=== PATIENT | male | born 1980 | race Caucasian/White ===

== ENCOUNTER 2019-02-06 21:35 | Emergency (ER) | payer BC ==
[2019-02-06] MEDS ORDERED: Pantoprazole 40 MG Vial IVPUSH ONE (21:45)
[2019-02-06] MEDS ORDERED: Aspirin 81 MG Tab.Chew PO ONE (21:45)
[2019-02-06] MEDS ORDERED: Sodium Chloride 0.9% 1,000 ML IV ONE (21:45)
--- NOTE | 2019-02-06 21:46 | EDM.PDOC ---
ED HPI GENERAL MEDICAL PROBLEM - General Chief Complaint: Chest Pain Stated Complaint: CHEST PAIN Time Seen by Provider: 02/06/19 21:46 Source of Information: Reports: Patient - History of Present Illness INITIAL COMMENTS - FREE TEXT/NARRATIVE: HISTORY AND PHYSICAL: History of present illness: [Patient presents with epigastric pain minimal 2 out of 10 nonradiating discomfort somewhat worsened by food nearly asymptomatic at current states pain has been present for 2 days it has been 10 out of 10, he comes in for medical screening today he is in no distress no fever nausea vomiting chills sweats or chest pain shortness breath headache dizziness or palpitation no bowel or urine symptoms Does have a history of diabetes which he chooses to treat with diet modification ] Review of systems: As per history of present illness and below otherwise all systems reviewed and negative. Past medical history: As per history of present illness and as reviewed below otherwise noncontributory. Surgical history: As per history of present illness and as reviewed below otherwise noncontributory. Social history: No reported history of drug or alcohol abuse. Family history: As per history of present illness and as reviewed below otherwise noncontributory. Physical exam: HEENT: Atraumatic, normocephalic, pupils reactive, negative for conjunctival pallor or scleral icterus, mucous membranes moist, throat clear, neck supple, nontender, trachea midline. Lungs: Clear to auscultation, breath sounds equal bilaterally, chest nontender. Heart: S1S2, regular, negative for clicks, rubs, or JVD. Abdomen: Soft, nondistended, nontender. Negative for masses or hepatosplenomegaly. Negative for costovertebral tenderness. Pelvis: Stable nontender. Genitourinary: Deferred. Rectal: Deferred. Extremities: Atraumatic, negative for cords or calf pain. Neurovascular unremarkable. Neuro: Awake, alert, oriented. Cranial nerves II through XII unremarkable. Cerebellum unremarkable. Motor and sensory unremarkable throughout. Exam nonfocal. Diagnostics: [CBC CMP troponin lipase UA EKG Chest 1 view ] Therapeutics: [ normal saline Aspirin Proton X GI cocktail resolved symptoms Insulin 10 units IV ] Impression: GERD Hyperglycemia Medication treatment noncompliance for diabetes Chronic history of baseline Definitive disposition and diagnosis as appropriate pending reevaluation and review of above. - Related Data Allergies Allergy/AdvReac Type Severity Reaction Status Date / Time No Known Allergies Allergy Verified 02/06/19 21:53 Home Meds: Home Meds . [No Known Home Meds] 02/06/19 [History] ED ROS GENERAL - Review of Systems Review Of Systems: See Below ED EXAM, GENERAL - Physical Exam Exam: See Below Course - Vital Signs Last Recorded V/S: Last Vital Signs Temp 97.2 F 02/06/19 21:35 Pulse 94 02/06/19 22:56 Resp 18 02/06/19 22:56 BP 152/98 H 02/06/19 22:56 Pulse Ox 96 02/06/19 22:56 - Orders/Labs/Meds Labs: Laboratory Tests 02/06/19 02/06/19 02/06/19 Range/Units 21:57 21:57 22:00 WBC 8.63 (4.0-11.0) K/uL RBC 5.79 (4.50-5.90) M/uL Hgb 18.4 H (13.0-17.0) g/dL Hct 49.9 (38.0-50.0) % MCV 86.2 (80.0-98.0) fL MCH 31.8 (27.0-32.0) pg MCHC 36.9 (31.0-37.0) g/dL RDW Std Deviation 40.2 (28.0-62.0) fl RDW Coeff of Yong 13 (11.0-15.0) % Plt Count 148 L (150-400) K/uL MPV 12.20 H (7.40-12.00) fL Neut % (Auto) 62.2 (48.0-80.0) % Lymph % (Auto) 28.2 (16.0-40.0) % [place] % (Auto) 7.1 (0.0-15.0) % Eos % (Auto) 2.3 (0.0-7.0) % Baso % (Auto) 0.2 (0.0-1.5) % Neut # (Auto) 5.4 (1.4-5.7) K/uL Lymph # (Auto) 2.4 (0.6-2.4) K/uL [place] # (Auto) 0.6 (0.0-0.8) K/uL Eos # (Auto) 0.2 (0.0-0.7) K/uL Baso # (Auto) 0.0 (0.0-0.1) K/uL Nucleated RBC % 0.0 /100WBC Nucleated RBCs # 0 K/uL Sodium 138 (136-148) mmol/L Potassium 3.6 (3.5-5.1) mmol/L Chloride 103 (98-107) mmol/L Carbon Dioxide 27.3 (21.0-32.0) mmol/L BUN 10 (7.0-18.0) mg/dL Creatinine 0.8 (0.8-1.3) mg/dL Est Cr Clr Drug Dosing 134.72 mL/min Estimated GFR (MDRD) > 60.0 ml/min Glucose 397 H (74-106) mg/dL Calcium 8.6 (8.5-10.1) mg/dL Total Bilirubin 0.7 (0.2-1.0) mg/dL ALT 48 (14-63) IU/L Alkaline Phosphatase 87 (46-116) U/L Troponin I < 0.050 (0.000-0.056) ng/mL Total Protein 7.2 (6.4-8.2) g/dL Albumin 3.7 (3.4-5.0) g/dL Globulin 3.5 (2.6-4.0) g/dL Albumin/Globulin Ratio 1.1 (0.9-1.6) Lipase 257 (73-393) U/L Urine Color YELLOW Urine Appearance CLEAR Urine pH 6.5 (5.0-8.0) Ur Specific [place] 1.020 (1.001-1.035) Urine Protein NEGATIVE (NEGATIVE) mg/dL Urine Glucose (UA) >=1000 (NEGATIVE) mg/dL Urine Ketones NEGATIVE (NEGATIVE) mg/dL Urine Occult Blood NEGATIVE (NEGATIVE) Urine Nitrite NEGATIVE (NEGATIVE) Urine Bilirubin NEGATIVE (NEGATIVE) Urine Urobilinogen 1.0 (<2.0) EU/dL Ur Leukocyte Esterase NEGATIVE (NEGATIVE) Meds: Medications Discontinued Medications Generic Name Dose Route Start Last Admin Trade Name Freq PRN Reason Stop Dose Admin Aspirin 324 mg 02/06/19 21:45 02/06/19 22:06 Aspirin PO 02/06/19 21:46 324 mg ONETIME ONE Administration Al Hydroxide/Mg Hydroxide 15 0 ml 02/06/19 22:41 02/06/19 22:55 ml/ Metoclopramide HCl 5 mg/ PO 02/06/19 22:42 25 each Lidocaine HCl 5 ml ONETIME ONE Administration Sodium Chloride 1,000 mls @ 999 mls/hr 02/06/19 21:45 02/06/19 22:05 Normal Saline IV 02/06/19 22:45 999 mls/hr STAT ONE Administration Insulin Human Regular 10 unit 02/06/19 23:03 02/06/19 23:15 Novolin R IVPUSH 02/06/19 23:04 10 units ONETIME ONE Administration Protocol Pantoprazole Sodium 80 mg 02/06/19 21:45 02/06/19 22:06 Protonix Iv IVPUSH 02/06/19 21:46 80 mg .BOLUS ONE Administration Sodium Chloride 20 ml 02/06/19 21:56 02/06/19 22:06 Normal Saline FLUSH 02/06/19 21:57 20 ml NOW STA Administration Departure - Departure Time of Disposition: 23:33 Disposition: Home, Self-Care 01 Condition: Good Clinical Impression: GERD (gastroesophageal reflux disease), Hyperglycemia - Discharge Information Referrals: PCP,None [Primary Care Provider] - Forms: ED Department Discharge Additional Instructions: Continue to follow glucose levels Follow-up with primary care to assist with management of diabetes Return if symptoms persist or worsen or if new concerning symptoms develop [facility] - Primary Care [address] [place] [id number] The following information is given to patients seen in the emergency department who are being discharged to home. This information is to outline your options for follow-up care. We provide all patients seen in our emergency department with a follow-up referral. The need for follow-up, as well as the timing and circumstances, are variable depending upon the specifics of your emergency department visit. If you don't have a primary care physician on staff, we will provide you with a referral. We always advise you to contact your personal physician following an emergency department visit to inform them of the circumstance of the visit and for follow-up with them and/or the need for any referrals to a consulting specialist. The emergency department will also refer you to a specialist when appropriate. This referral assures that you have the opportunity for follow-up care with a specialist. All of these measure are taken in an effort to provide you with optimal care, which includes your follow-up. Under all circumstances we always encourage you to contact your private physician who remains a resource for coordinating your care. When calling for follow-up care, please make the office aware that this follow-up is from your recent emergency room visit. If for any reason you are refused follow-up, please contact the [facility] emergency department at and asked to speak to the emergency department charge nurse.
[2019-02-06] MEDS ORDERED: Sodium Chloride 0.9% 20 ML SDV FLUSH STA (21:56)
[2019-02-06 22:24] LABS: CHLORIDE,CL 103 mmol/L (98-107); SODIUM,NA 138 mmol/L (136-148)
--- NOTE | 2019-02-06 22:34 | CR ---
INDICATION: Chest pain TECHNIQUE: Chest 1 view COMPARISON: None FINDINGS: Cardiovascular and mediastinum: Heart size and vasculature are normal in caliber and appearance. Lungs and pleural spaces: Lungs are clear. No sign of infiltrate or mass. No sign of pleural effusion. No pneumothorax. Bones and soft tissues: No significant findings. IMPRESSION: No acute or significant findings. Dictated by John Moncada MD @ Feb 06 2019 10:33PM Signed by Dr. John Moncada @ Feb 06 2019 10:34PM
[2019-02-06] MEDS ORDERED: Alum Hydrox/Mag Hydrox/Simeth 15 ML, Metoclopramide 5 MG, Lidocaine 2% 5 ML PO ONE ×3 (22:41)
[2019-02-06] MEDS ORDERED: Insulin Regular, Human 100 Units/ML 10 ML Vial IVPUSH ONE (23:03)
== END 2019-02-07 | disposition home or self-care (01) ==
LOC: MW.ED 21:35
DX: K21.9 Gastro-esophageal reflux disease without esophagitis (principal); E11.65 Type 2 diabetes mellitus with hyperglycemia; Z91.19 Patient's noncompliance with other medical treatment and regimen
CPT/HCPCS: 36415; 71045; 80053; 81003; 82962; 83690; 84484; 85025; 93005; 96361; 96374; 99285; A9270; C9113; J7040; 99284; J1815-GY

== ENCOUNTER 2019-08-18 14:13 | Emergency (ER) | payer BC, OTHER ==
[2019-08-18] MEDS ORDERED: Diphtheria,Pertussis(Acell),Tetanus Vaccine 0.5 ML Syringe IM ONE (15:37)
--- NOTE | 2019-08-18 15:37 | EDM.PDOC ---
ED HPI GENERAL MEDICAL PROBLEM - General Chief Complaint: Upper Extremity Injury/Pain Stated Complaint: FINGERS BROKEN Time Seen by Provider: 08/18/19 15:25 Source of Information: Reports: Patient History Limitations: Reports: No Limitations - History of Present Illness INITIAL COMMENTS - FREE TEXT/NARRATIVE: HISTORY AND PHYSICAL: History of present illness: Patient is a 39-year-old male who presents to the ED today with concern of finger injury that occurred just prior to arrival to the ED. 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 Patient states he has had pain with moving his middle finger since the incident. Patient denies any other symptoms or concerns. States he is not up to date on tetanus Patient denies fever, chills, chest pain, shortness of breath, or cough. Denies headache, neck stiff ness, change in vision, syncope, or near syncope. Denies nausea, vomiting, abdominal pain, diarrhea, constipation, or dysuria. Has not noted any blood in urine or stool. Patient has been eating and drinking appropriately. Review of systems: As per history of present illness and below otherwise all systems reviewed and negative. Past medical history: As per history of present illness and as reviewed below otherwise noncontributory. Surgical history: As per history of present illness and as reviewed below otherwise noncontributory. Social history: See social history for further information Family history: As per history of present illness and as reviewed below otherwise noncontributory. Physical exam: General: Patient is alert, oriented, and in no acute distress. Patient sitting comfortably on exam table. HEENT: Atraumatic, normocephalic, pupils equal and reactive bilaterally, negative for conjunctival pallor or scleral icterus, mucous membranes moist, TMs normal bilaterally, throat clear, neck supple, nontender, trachea midline. No drooling or trismus noted. No meningeal signs. No hot potato voice noted. Lungs: Clear to auscultation, breath sounds equal bilaterally, chest nontender. Heart: S1S2, regular rate and rhythm without overt murmur Abdomen: Soft, nondistended, nontender. Negative for masses or hepatosplenomegaly. Negative for costovertebral tenderness. Pelvis: Stable nontender. Genitourinary: Deferred. Rectal: Deferred. Skin: Intact, warm, dry. No lesions or rashes noted. Extremities: Negative for cords or calf pain. Neurovascular unremarkable. There are 2 superficial abrasions over the dorsum of the middle phalanx of digits 3 and 4 without bleeding. Patient has full range of motion of the left hand thumb , pointer finger, and pinky finger but has limited range of motion of the third and fourth digits. Radial pulses grossly intact of the left upper extremity with capillary refill less than 2 seconds. Neuro: Awake, alert, oriented. Cranial nerves II through XII unremarkable. Cerebellum unremarkable. Motor and sensory unremarkable throughout. Exam nonfocal. Notes: Discussed the importance for follow-up with an orthopedic provider. Patient was placed on the follow-up list with orthopedic. Voices understanding and is agreeable to plan of care. Denies any further questions or concerns at this time. Diagnostics: Hand XR Therapeutics: tdap, lidocaine, finger splints (placed by nursing staff) Prescription: None Impression: Plan: 1. Rest, ice, elevate the affected extremity. You can apply ice 15 minutes on, 15 minutes off. Keep the splints on until orthopedic evaluation and follow up. 2. Tylenol and/or Ibuprofen as directed for pain management or discomfort. 3. Follow up with the Orthopedic provider as discussed. Return to the ED as needed and as discussed. Definitive disposition and diagnosis as appropriate pending reevaluation and review of above. left middle and ring finger Pain Score (Numeric/FACES): 3 - Related Data Allergies Allergy/AdvReac Type Severity Reaction Status Date / Time No Known Allergies Allergy Verified 08/18/19 15:25 Home Meds: Home Meds . [No Known Home Meds] 08/18/19 [History] Past Medical History - Past Health History Medical/Surgical History: Denies Medical/Surgical History HEENT History: Reports: Impaired Vision Cardiovascular History: Reports: Hypertension Endocrine/Metabolic History: Reports: Diabetes, Type II - Past Surgical History HEENT Surgical History: Reports: Oral Surgery Social & Family History - Family History Family Medical History: Noncontributory - Tobacco Use Smoking Status *Q: Current Some Day Smoker Years of Tobacco use: 20 Packs/Tins Daily: 0 - Recreational Drug Use Recreational Drug Use: No Review of Systems - Review of Systems Review Of Systems: Comprehensive ROS is negative, except as noted in HPI. ED EXAM, GENERAL - Physical Exam Exam: See Below (see dictation) ED TRAUMA EXTREMITY PROCEDURES - Additional/Other Procedure(s) Other (Free Text) Procedure(s): 3rd digit left hand was sterilized using Betadine and then was digitally blocked using 5ml of 1% lidocaine and 5ml of 0.5% bupivacaine. The middle phalanx was relocated and digits were splinted by nursing staff. Patient tolerated procedure well. Course - Vital Signs Last Recorded V/S: Last Vital Signs Temp 96.7 F 08/18/19 15:23 Pulse 80 08/18/19 15:23 Resp 18 08/18/19 15:23 BP 138/83 08/18/19 15:23 Pulse Ox 97 08/18/19 15:23 - Orders/Labs/Meds Orders: Active Orders 24 hr Category Date Time Status Vaccines to be Administered [RC] PER UNIT ROUTINE Care 08/18/19 15:37 Active Hand Comp Min 3V Lt [CR] Stat Exams 08/18/19 16:25 Ordered Meds: Medications Discontinued Medications Generic Name Dose Route Start Last Admin Trade Name Mukundq PRN Reason Stop Dose Admin Bupivacaine HCl 10 ml 08/18/19 16:07 Sensorcaine-Mpf 0.25% INJECT 08/18/19 16:08 ONETIME ONE Bupivacaine HCl Confirm 08/18/19 16:07 08/18/19 16:15 Sensorcaine-Mpf 0.5% Administered 08/18/19 16:08 Not Given Dose 10 ml .ROUTE .STK-MED ONE Diphtheria/Tetanus/Acell Pertussis 0.5 ml 08/18/19 15:37 08/18/19 16:13 Adacel IM 08/18/19 15:38 0.5 ml .ONCE ONE Administration Lidocaine HCl 10 ml 08/18/19 16:02 Xylocaine-Mpf 1% INJECT 08/18/19 16:03 ONETIME ONE Departure - Departure Time of Disposition: 16:45 Disposition: Home, Self-Care 01 Clinical Impression: Middle or proximal phalanx or phalanges, closed fracture - Discharge Information Referrals: PCP,None [Primary Care Provider] - Forms: ED Department Discharge Additional Instructions: The following information is given to patients seen in the emergency department who are being discharged to home. This information is to outline your options for follow-up care. We provide all patients seen in our emergency department with a follow-up referral. The need for follow-up, as well as the timing and circumstances, are variable depending upon the specifics of your emergency department visit. If you don't have a primary care physician on staff, we will provide you with a referral. We always advise you to contact your personal physician following an emergency department visit to inform them of the circumstance of the visit and for follow-up with them and/or the need for any referrals to a consulting specialist. The emergency department will also refer you to a specialist when appropriate. This referral assures that you have the opportunity for follow-up care with a specialist. All of these measure are taken in an effort to provide you with optimal care, which includes your follow-up. Under all circumstances we always encourage you to contact your private physician who remains a resource for coordinating your care. When calling for follow-up care, please make the office aware that this follow-up is from your recent emergency room visit. If for any reason you are refused follow-up, please contact the [facility] Emergency Department at and asked to speak to the emergency department charge nurse. [facility] [address] [place] [address] [place] [address] [facility] Professional [facility] [address] [place] [address], [address] [place] [address] 1. Rest, ice, elevate the affected extremity. You can apply ice 15 minutes on, 15 minutes off. Keep the splints on until orthopedic evaluation and follow up. 2. Tylenol and/or Ibuprofen as directed for pain management or discomfort. 3. Follow up with the Orthopedic provider as discussed. Return to the ED as needed and as discussed. Sepsis Event Note - Evaluation Sepsis Screening Result: No Definite Risk - Focused Exam Vital Signs: Vital Signs Temp Pulse Resp BP Pulse Ox 08/18/19 15:23 96.7 F 80 18 138/83 97 Date Exam was Performed: 08/18/19 Time Exam was Performed: 16:45 - My Orders Last 24 Hours: My Active Orders 08/18/19 15:37 Vaccines to be Administered [RC] PER UNIT ROUTINE 08/18/19 16:25 Hand Comp Min 3V Lt [CR] Stat - Assessment/Plan Last 24 Hours: My Active Orders 08/18/19 15:37 Vaccines to be Administered [RC] PER UNIT ROUTINE 08/18/19 16:25 Hand Comp Min 3V Lt [CR] Stat
--- NOTE | 2019-08-18 16:02 | CR ---
INDICATION: Injury. Three views of the left hand. Findings: Transverse fractures through the 4th and 3rd middle phalanx with dorsal angulation and slight displacement. Soft tissue swelling present. Dictated by Kristin Foster MD @ Aug 18 2019 3:59PM Signed by Dr. Kristin Foster @ Aug 18 2019 4:00PM
[2019-08-18] MEDS ORDERED: Bupivacaine 0.5% 10 ML SDV ONE (16:07)
[2019-08-18] MEDS ORDERED: Bupivacaine 0.25% 10 ML SDV INJECT ONE (16:07)
--- NOTE | 2019-08-18 17:36 | CR ---
HISTORY: Left hand trauma. TECHNIQUE: Left hand 3 views. Addition lateral view post reduction. COMPARISON: Radiographs same day at 1539 hours. FINDINGS: Acute angulated fractures of the 3rd and 4th middle phalanges. Decreased angulation compared to prior radiographs on the initial 3 images. On the lateral post reduction image the alignment of the 3rd middle phalanx is anatomic. Minimal residual apex volar angulation of the 4th middle phalanx. No other change. IMPRESSION: Improved alignment of 3rd and 4th middle phalanx fractures. Dictated by Pillo Chavez MD @ Aug 18 2019 5:35PM Signed by Dr. Pillo Chavez @ Aug 18 2019 5:35PM
== END 2019-08-18 17:16 | disposition home or self-care (01) ==
LOC: MW.ED 14:13 → MERGE 14:13 → MW.ED 17:16
DX: S62.623A Displaced fracture of middle phalanx of left middle finger, initial encounter for closed fracture (principal); S62.625A Displaced fracture of middle phalanx of left ring finger, initial encounter for closed fracture; I10 Essential (primary) hypertension; E11.9 Type 2 diabetes mellitus without complications; F17.210 Nicotine dependence, cigarettes, uncomplicated; Z23 Encounter for immunization; W23.0XXA Caught, crushed, jammed, or pinched between moving objects, initial encounter; Y93.89 Activity, other specified; Y92.89 Other specified places as the place of occurrence of the external cause; Y99.0 Civilian activity done for income or pay
CPT/HCPCS: 26725; 73130; 90471; 90715; 99283; J2001; J3490

== ENCOUNTER 2019-12-17 22:49 | Emergency (ER) | payer OTHER ==
[2019-12-17] MEDS ORDERED: Sodium Chloride 0.9% 1,000 ML IV ONE (23:41)
[2019-12-18 00:25] LABS: BLOOD UREA NITROGEN,BUN 19 mg/dL (7.0-18.0); CARBON DIOXIDE,CO2 27.5 mmol/L (21.0-32.0); CHLORIDE,CL 96 mmol/L (98-107); GLUCOSE RANDOM 400 mg/dL (74-106); POTASSIUM,K 3.8 mmol/L (3.5-5.1); SODIUM,NA 131 mmol/L (136-148)
[2019-12-18 00:46] LABS: HEMOGLOBIN A1C 11.1 % (4.5-6.2)
[2019-12-18] MEDS ORDERED: Iopamidol 755 Mg/ML 100 ML Bottle IVPUSH STA (01:10)
[2019-12-18] MEDS ORDERED: metFORMIN 500 MG Tab PO ONE (01:15)
[2019-12-18] MEDS ORDERED: Insulin Regular, Human 100 Units/ML 10 ML Vial SUBCUT ONE (01:16)
--- NOTE | 2019-12-18 01:24 | CT ---
INDICATION: Pain TECHNIQUE: CT abdomen and pelvis acquired with IV contrast. COMPARISON: None FINDINGS: Lower chest: Unremarkable. Liver: Unremarkable. Spleen: Unremarkable. Pancreas: Unremarkable. Gallbladder and bile ducts: Unremarkable. Kidneys: Unremarkable. Adrenal glands: Unremarkable. GI tract: Sigmoid diverticulosis. Diffuse colonic fecal retention. Appendix is normal. Vascular structures: Unremarkable. Lymph nodes: Unremarkable. Miscellaneous: Unremarkable. No free air or significant free fluid. Pelvic Organs: Unremarkable. Bones: Unremarkable for age. IMPRESSION: Diffuse colonic fecal retention. Sigmoid diverticulosis. Dictated by Matt Portillo MD @ 12/18/2019 1:22:55 AM Please note that all CT scans at this facility use dose modulation, iterative reconstruction, and/or weight-based dosing when appropriate to reduce radiation dose to as low as reasonably achievable. Dictated by: Matt Portillo MD @ 12/18/2019 01:23:05 (Electronically Signed)
[2019-12-18] MEDS ORDERED: Dicyclomine 10 MG Cap PO ONE (01:51)
[2019-12-18] MEDS ORDERED: Dicyclomine 10 MG Cap ONE (01:53)
--- NOTE | 2019-12-18 02:00 | EDM.PDOC ---
ED HPI GENERAL MEDICAL PROBLEM - General Chief Complaint: Back Pain or Injury Stated Complaint: LEFT SIDE PAIN Time Seen by Provider: 12/17/19 23:31 Source of Information: Reports: Patient History Limitations: Reports: No Limitations - History of Present Illness INITIAL COMMENTS - FREE TEXT/NARRATIVE: This 39-year-old male is complaining of having right flank pain that is been ongoing for the last 3 days bothering him mainly at night. States pain is less when he is moving around during the day and is more noticeable when he rests at night. He describes the pain as 3-4 out of 10 intensity and feels somewhat crampy in nature. He denies any dysuria or hematuria. He is not nauseous and is not having any vomiting or diarrhea. Said no bloody or tarry looking stools. Patient has not taken anything for his current symptoms but states the pain is enough that it keeps him up at night. He has not seen his PCP for 2-1/ 2 years. Onset: Gradual Duration: Day(s): (three) Location: Reports: Abdomen, Back Quality: Reports: Ache Severity: Moderate Improves with: Reports: Movement Worsens with: Reports: Rest Associated Symptoms: Reports: No Other Symptoms R BACK PAIN Pain Score (Numeric/FACES): 2 - Related Data Allergies Allergy/AdvReac Type Severity Reaction Status Date / Time No Known Allergies Allergy Verified 02/06/19 21:53 Home Meds: Home Meds metFORMIN [Glucophage] 1 tab PO DAILY 12/17/19 [History] Dicyclomine [Bentyl] 20 mg PO TID PRN #20 tab 12/18/19 [Rx] metFORMIN [Glucophage] 500 mg PO BIDMEALS #60 tab 12/18/19 [Rx] Past Medical History - Past Health History Medical/Surgical History: Denies Medical/Surgical History HEENT History: Reports: Impaired Vision, Other (See Below) Other HEENT History: wears glasses Cardiovascular History: Reports: Hypertension Endocrine/Metabolic History: Reports: Diabetes, Type II - Infectious Disease History Infectious Disease History: Reports: Chicken Pox - Past Surgical History HEENT Surgical History: Reports: Oral Surgery Social & Family History - Family History Family Medical History: Noncontributory - Tobacco Use Smoking Status *Q: Current Some Day Smoker Years of Tobacco use: 15 Packs/Tins Daily: 0.1 - Recreational Drug Use Recreational Drug Use: No ED ROS GENERAL - Review of Systems Review Of Systems: Comprehensive ROS is negative, except as noted in HPI. ED EXAM,LOWER BACK PAIN/INJURY - Physical Exam Exam: See Below Exam Limited By: No Limitations General Appearance: Alert, No Apparent Distress Head: Atraumatic Neck: Normal Inspection, Supple Respiratory/Chest: No Respiratory Distress, Lungs Clear, Normal Breath Sounds Cardiovascular: Regular Rate, Rhythm, No JVD GI/Abdominal: Normal Bowel Sounds, Soft, No Distention, Tender. No: Guarding, Rigid, Rebound Back Exam: Normal Inspection, Full Range of Motion, CVA Tenderness (R) Extremities: Normal Inspection Neurological: Alert, Normal Mood/Affect Psychiatric: Normal Affect Skin Exam: Warm, Dry Course - Vital Signs Last Recorded V/S: Last Vital Signs Temp 36.7 C 12/17/19 23:11 Pulse 96 12/17/19 23:11 Resp 18 12/17/19 23:11 BP 174/105 H 12/17/19 23:11 Pulse Ox 96 12/17/19 23:11 Patient's urine shows greater than 1000 glucose and ketones. His blood sugar is 400 and his hemoglobin A1c is greater than 11. Patient CT scan shows a lot of stool in his colon. Otherwise is normal. I am starting patient on Bentyl and recommending he use mag citrate and MiraLAX [id number]. I will give him a prescription for additional Bentyl. I am also starting him on metformin 500 mg twice a day and recommend he follow-up with his PCP for recheck and adjustment of his meds. Patient will need to take his blood sugar frequently and have some diabetes teaching. Return to ER if vomiting or increased pain or feeling worse. - Orders/Labs/Meds Labs: Laboratory Tests 12/17/19 12/17/19 12/17/19 Range/Units 23:00 23:50 23:50 WBC 8.51 (4.0-11.0) K/uL RBC 5.41 (4.50-5.90) M/uL Hgb 17.0 (13.0-17.0) g/dL Hct 47.7 (38.0-50.0) % MCV 88.2 (80.0-98.0) fL MCH 31.4 (27.0-32.0) pg MCHC 35.6 (31.0-37.0) g/dL RDW Std Deviation 41.0 (28.0-62.0) fl RDW Coeff of Yong 13 (11.0-15.0) % Plt Count 144 L (150-400) K/uL MPV 12.30 H (7.40-12.00) fL Neut % (Auto) 60.8 (48.0-80.0) % Lymph % (Auto) 29.1 (16.0-40.0) % [place] % (Auto) 6.7 (0.0-15.0) % Eos % (Auto) 2.9 (0.0-7.0) % Baso % (Auto) 0.5 (0.0-1.5) % Neut # (Auto) 5.2 (1.4-5.7) K/uL Lymph # (Auto) 2.5 H (0.6-2.4) K/uL Titus # (Auto) 0.6 (0.0-0.8) K/uL Eos # (Auto) 0.3 (0.0-0.7) K/uL Baso # (Auto) 0.0 (0.0-0.1) K/uL Nucleated RBC % 0.0 /100WBC Nucleated RBCs # 0 K/uL Sodium (136-148) mmol/L Potassium (3.5-5.1) mmol/L Chloride (98-107) mmol/L Carbon Dioxide (21.0-32.0) mmol/L BUN (7.0-18.0) mg/dL Creatinine (0.8-1.3) mg/dL Est Cr Clr Drug Dosing mL/min Estimated GFR (MDRD) ml/min Glucose (74-106) mg/dL Hemoglobin A1c 11.1 H (4.5-6.2) % Calcium (8.5-10.1) mg/dL Total Bilirubin (0.2-1.0) mg/dL AST (15-37) IU/L ALT (14-63) IU/L Alkaline Phosphatase (46-116) U/L Total Protein (6.4-8.2) g/dL Albumin (3.4-5.0) g/dL Globulin (2.6-4.0) g/dL Albumin/Globulin Ratio (0.9-1.6) Urine Color YELLOW Urine Appearance CLEAR Urine pH 6.5 (5.0-8.0) Ur Specific [place] 1.015 (1.001-1.035) Urine Protein NEGATIVE (NEGATIVE) mg/dL Urine Glucose (UA) >=1000 (NEGATIVE) mg/dL Urine Ketones TRACE H (NEGATIVE) mg/dL Urine Occult Blood NEGATIVE (NEGATIVE) Urine Nitrite NEGATIVE (NEGATIVE) Urine Bilirubin NEGATIVE (NEGATIVE) Urine Urobilinogen 1.0 (<2.0) EU/dL Ur Leukocyte Esterase NEGATIVE (NEGATIVE) Ketones (NEG) 12/17/19 12/17/19 Range/Units 23:50 23:50 WBC (4.0-11.0) K/uL RBC (4.50-5.90) M/uL Hgb (13.0-17.0) g/dL Hct (38.0-50.0) % MCV (80.0-98.0) fL MCH (27.0-32.0) pg MCHC (31.0-37.0) g/dL RDW Std Deviation (28.0-62.0) fl RDW Coeff of Yong (11.0-15.0) % Plt Count (150-400) K/uL MPV (7.40-12.00) fL Neut % (Auto) (48.0-80.0) % Lymph % (Auto) (16.0-40.0) % [place] % (Auto) (0.0-15.0) % Eos % (Auto) (0.0-7.0) % Baso % (Auto) (0.0-1.5) % Neut # (Auto) (1.4-5.7) K/uL Lymph # (Auto) (0.6-2.4) K/uL [place] # (Auto) (0.0-0.8) K/uL Eos # (Auto) (0.0-0.7) K/uL Baso # (Auto) (0.0-0.1) K/uL Nucleated RBC % /100WBC Nucleated RBCs # K/uL Sodium 131 L (136-148) mmol/L Potassium 3.8 (3.5-5.1) mmol/L Chloride 96 L (98-107) mmol/L Carbon Dioxide 27.5 (21.0-32.0) mmol/L BUN 19 H (7.0-18.0) mg/dL Creatinine 1.0 (0.8-1.3) mg/dL Est Cr Clr Drug Dosing 106.70 mL/min Estimated GFR (MDRD) > 60.0 ml/min Glucose 400 H (74-106) mg/dL Hemoglobin A1c (4.5-6.2) % Calcium 7.4 L (8.5-10.1) mg/dL Total Bilirubin 0.9 (0.2-1.0) mg/dL AST 37 (15-37) IU/L ALT 51 (14-63) IU/L Alkaline Phosphatase 74 (46-116) U/L Total Protein 6.7 (6.4-8.2) g/dL Albumin 3.4 (3.4-5.0) g/dL Globulin 3.5 (2.6-4.0) g/dL Albumin/Globulin Ratio 1.0 (0.9-1.6) Urine Color Urine Appearance Urine pH (5.0-8.0) Ur Specific [place] (1.001-1.035) Urine Protein (NEGATIVE) mg/dL Urine Glucose (UA) (NEGATIVE) mg/dL Urine Ketones (NEGATIVE) mg/dL Urine Occult Blood (NEGATIVE) Urine Nitrite (NEGATIVE) Urine Bilirubin (NEGATIVE) Urine Urobilinogen (<2.0) EU/dL Ur Leukocyte Esterase (NEGATIVE) Ketones NEGATIVE (NEG) Meds: Medications Discontinued Medications Generic Name Dose Route Start Last Admin Trade Name Freq PRN Reason Stop Dose Admin Dicyclomine HCl 20 mg 12/18/19 01:51 12/18/19 01:53 Bentyl PO 12/18/19 01:52 20 mg ONETIME ONE Administration Sodium Chloride 1,000 mls @ 999 mls/hr 12/17/19 23:41 12/18/19 00:04 Normal Saline IV 12/18/19 00:41 999 mls/hr .BOLUS ONE Administration Insulin Human Regular 10 unit 12/18/19 01:16 12/18/19 01:36 Novolin R SUBCUT 12/18/19 01:17 10 units ONETIME ONE Administration Protocol Iopamidol 100 ml 12/18/19 01:10 12/18/19 01:11 [id number] (76%) IVPUSH 12/18/19 01:11 100 ml ONETIME STA Administration Metformin HCl 500 mg 12/18/19 01:15 12/18/19 01:51 Glucophage PO 12/18/19 01:16 500 mg ONETIME ONE Administration Departure - Departure Time of Disposition: 01:59 Disposition: Home, Self-Care 01 Condition: Good Clinical Impression: Diabetes, Flank pain - Discharge Information Instructions: Type 2 Diabetes Mellitus, Diagnosis, Adult, Tips for Eating Away From Home If You Have Diabetes Referrals: PCP,None [Primary Care Provider] - Additional Instructions: [id number] mag citrate and MiraLAX as directed. Increase fiber and fluid with meals. Follow-up with PCP for diabetes teaching. Metformin as prescribed. Bentyl as needed. Return to ER if having fever chills vomiting or worse. Ibuprofen with meals as needed. Care Plan Goals: The following information is given to patients seen in the emergency department who are being discharged to home. This information is to outline your options for follow-up care. We provide all patients seen in our emergency department with a follow-up referral. The need for follow-up, as well as the timing and circumstances, are variable depending upon the specifics of your emergency department visit. If you don't have a primary care physician on staff, we will provide you with a referral. We always advise you to contact your personal physician following an emergency department visit to inform them of the circumstance of the visit and for follow-up with them and/or the need for any referrals to a consulting specialist. The emergency department will also refer you to a specialist when appropriate. This referral assures that you have the opportunity for follow-up care with a specialist. All of these measure are taken in an effort to provide you with optimal care, which includes your follow-up. Under all circumstances we always encourage you to contact your private physician who remains a resource for coordinating your care. When calling for follow-up care, please make the office aware that this follow-up is from your recent emergency room visit. If for any reason you are refused follow-up, please contact the [facility] Emergency Department at and asked to speak to the emergency department charge nurse. Sepsis Event Note - Evaluation Sepsis Screening Result: No Definite Risk - Focused Exam Vital Signs: Vital Signs Temp Pulse Resp BP Pulse Ox 12/17/19 23:11 36.7 C 96 18 174/105 H 96 Date Exam was Performed: 12/18/19 Time Exam was Performed: 01:55
== END 2019-12-18 02:13 | disposition home or self-care (01) ==
LOC: MW.ED 22:49
DX: R10.9 Unspecified abdominal pain (principal); E11.9 Type 2 diabetes mellitus without complications; Z79.84 Long term (current) use of oral hypoglycemic drugs; I10 Essential (primary) hypertension; F17.210 Nicotine dependence, cigarettes, uncomplicated
CPT/HCPCS: 36415; 74177; 80053; 81003; 82009; 83036; 85025; 96360; 99284; A9270; J7030; Q9967; 99283